=== PATIENT | male | born 1995 | race Two or more races ===

== ENCOUNTER 2018-11-29 15:19 | Emergency (ER) | payer OTHER ==
[~2018-11-29] VITALS: Ht 185.4 cm; Wt 124.7 kg
[2018-11-29 15:36] VITALS: BP 135/72
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
[2018-11-29] MEDS ORDERED: ROBAXIN-750750 MG PO (16:09)
[2018-11-29] MEDS ORDERED: IBUPROFEN600 MG ORAL (16:09)
[2018-11-29] MEDS ORDERED: Acetaminophen 500mg (ES) tab ORAL ONE (16:15)
[2018-11-29 16:54] VITALS: BP 135/72
== END 2018-11-29 16:54 | disposition home or self-care (01) ==
LOC: EMR 16:00
DX: S16.1XXA Strain of muscle, fascia and tendon at neck level, initial encounter (principal); M62.838 Other muscle spasm; M79.602 Pain in left arm; V43.62XA Car passenger injured in collision with other type car in traffic accident, initial encounter; Y92.410 Unspecified street and highway as the place of occurrence of the external cause
CPT/HCPCS: 99282